=== PATIENT | male | born 1995 | race Caucasian/White ===

== ENCOUNTER 2019-10-10 02:15 | Emergency (ER) | payer OTHER ==
[2019-10-10 03:08] LABS: ABS Basophils 0.1 10^3/ul (0-0.2); ABS Eosinophils 0.1 10^3/ul (0-0.6); ABS Lymphocytes 1.9 10^3/ul (1.0-4.8); ABS Monocytes 0.6 10^3/ul (0-0.8); ABS Neutrophils 1.9 10^3/ul (1.5-7.7); Eosinophil % 1.7 %; Hematocrit 43 % (42-52); Hemoglobin 15.1 g/dL (14.0-18.0); INR 1.03 (0.82-1.09); Lymphocyte % 41.6 %; Mean Corpuscular HGB Conc 35 g/dL (31-36); Mean Corpuscular Hemoglobin 31 pg (27-31); Mean Corpuscular Volume 89 fL (80-94); Mean Platelet Volume 7.8 fL (7.4-10.4); Nucleated Red Blood Cells % 0.1; Platelet Count 222 10^3/uL (150-450); Red Cell Distribution Width 13 % (10-15); White Blood Count 4.5 10^3/uL (3.5-10.8)
[2019-10-10 03:12] LABS: Albumin/Globulin Ratio 1.6 (1-3); BUN/Creatinine Ratio 13.8 (8-20); Calcium 9.9 mg/dL (8.6-10.3); EGFR African American 132.8 (>60); EGFR Non-African American 109.7 (>60); Globulin 3.1 g/dL (2-4); Potassium 3.9 mmol/L (3.5-5.0); Total Bilirubin 0.6 mg/dL (0.2-1.0); Total Protein 8.1 g/dL (6.4-8.9)
--- OUTSIDE RECORDS SUMMARY | 2019-10-10 03:17 | XMS REPORT | Continuity of Care Document ---
:1995 External Reference #:[id number] Author Name John Aguilera M.D. (transmitted by agent of provider Kristy Chacon) Address [address] [facility] [address] [place] [address] Care Team Providers Name Role Phone Merari Lorenzana M.D. 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 Medicine Problems Description No Information Available Social History Type Date Description Comments Sex Unknown Allergies, Adverse Reactions, Alerts Description No Information Available Medications Description No Information Available Immunizations Description No Information Available Vital Signs Description No Information Available Results Description No Information Available Procedures Date Code Description Status 10/05/2019 11819 Holter Monitor Review (24 hr)dr review & interp only Completed 10/04/2019 88708 ECHO Transthoracic, Real-Time 2D With Doppler And Color Completed Flow 10/04/2019 41817 ECG Monitor/Recording W/Visual Superimposition Scanning Completed 10/04/2019 03687 ECG Monitor/Recording W/Visual Superimposition Scanning Completed Medical Devices Description No Information Available Encounters Description No Information Available Assessments Date Code Description Provider 10/05/2019 H34.212 Partial retinal artery occlusion, left John Aguilera M.D. eye 10/05/2019 I49.3 Ventricular premature depolarization John Aguilera M.D. 10/04/2019 R00.2 Palpitations John Aguilera M.D. 10/04/2019 H34.212 Partial retinal artery occlusion, left Ica ECHO Schedule eye 10/04/2019 H34.212 Partial retinal artery occlusion, left John Aguilera M.D. eye 10/04/2019 R00.2 Palpitations Nurse Visit IC 10/04/2019 I49.3 Ventricular premature depolarization John Aguilera M.D. 10/04/2019 H34.212 Partial retinal artery occlusion, left Nurse Visit IC eye 10/04/2019 I49.3 Ventricular premature depolarization Nurse Visit IC 10/04/2019 R00.2 Palpitations Ica ECHO Schedule Plan of Treatment No Information Available Functional Status Description No Information Available Mental Status Description No Information Available Referrals Description No Information Available
--- OUTSIDE RECORDS SUMMARY | 2019-10-10 03:17 | XMS REPORT | Continuity of Care Document ---
:1995 External Reference #:[id number] Author Name Nurse Visit IC (transmitted by agent of provider Kristy Chacon) Address [address] [place] [address] Care Team Providers Name Role Phone Merari Lorenzana M.D. 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 Problems Description No Information Available Social History Type Date Description Comments Sex Unknown Allergies, Adverse Reactions, Alerts Description No Information Available Medications Description No Information Available Immunizations Description No Information Available Vital Signs Description No Information Available Results Description No Information Available Procedures Date Code Description Status 10/05/2019 74995 Holter Monitor Review (24 hr)dr review & interp only Completed 10/04/2019 24239 ECHO Transthoracic, Real-Time 2D With Doppler And Color Completed Flow 10/04/2019 09031 ECG Monitor/Recording W/Visual Superimposition Scanning Completed 10/04/2019 16852 ECG Monitor/Recording W/Visual Superimposition Scanning Completed Medical [...]
--- OUTSIDE RECORDS SUMMARY | 2019-10-10 03:17 | XMS REPORT | Continuity of Care Document ---
:1995 External Reference #:[id number] Author Name Orlando Tian M.D. 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 Onset: 09/29/2019 Social History Type Date Description Comments Sex Unknown ETOH Use Consumes 3-4 beers per week Tobacco Use Start: Unknown Patient has never smoked Recreational Drug Use Denies Drug Use Smoking Status Reviewed: 10/06/19 Patient has never smoked Allergies, Adverse Reactions, Alerts Description No Known Drug Allergies Medications Active Medications SIG Qnty Indications Ordering Provider Date Melatonin Unknown 3mg Capsules Claritin 1 per day as Unknown 10mg Capsules needed Immunizations Description No Information Available Vital Signs Description No Information Available Results Description No Information Available Procedures Date Code Description Status 10/06/2019 21222 Scanning Computerized Opthalmic Diagnostic Posterior Seg Completed Retina 10/06/2019 21165 Est Patient Comprehensive Exam Completed 09/29/2019 66514 Scanning Computerized Opthalmic Diagnostic Posterior Seg Completed Retina 09/29/2019 74270 New Patient Comprehensive Exam Completed Medical Devices Description No Information Available Encounters Description No Information Available Assessments Date Code Description Provider 10/06/2019 H34.212 Partial retinal artery occlusion, left eye Orlando Tian M.D. 09/29/2019 H34.212 Partial retinal artery occlusion, left eye Orlando Tian M.D. Plan of Treatment Future Appointment(s):11/02/2019 3:00 pm - Orlando Tian M.D. at Artie Ragland MD, 10/06/2019 - Orlando Tian M.D.H34.212 Partial retinal artery occlusion, left eyeComments:Smoking can increase the risk of developing or worsening any eye related disease, as well as affect your overall health. If you are a smoker, we strongly recommend that you quit.If you are not a smoker, we strongly recommend that you do not start. YOUR EYE EXAM LOOKS THE SAME PREVIOUS. I DO NOT SEE ANY NEW LESIONS.I WILL AWAIT THE RESULTS OF YOUR ECHOCARDIOGRAM.I WILL SEND A LETTER TO DR. HIGHTOWER ABOUT OUR VISIT WELL TO DISCUSS POSSIBLY DOING A HYPERCOAGULABILITY WORK UP IF YOUR OTHER TESTING IS NORMAL. Functional Status Description No Information Available Mental Status Description No Information Available Referrals Description No Information Available
--- OUTSIDE RECORDS SUMMARY | 2019-10-10 03:17 | XMS REPORT | Continuity of Care Document ---
:1995 External Reference #:[id number] Author Name Orlando Tian M.D. 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 Onset: 09/29/2019 Social History Type Date Description Comments Sex Unknown ETOH Use Consumes 3-4 beers per week Tobacco Use Start: Unknown Patient has never smoked Recreational Drug Use Denies Drug Use Smoking Status Reviewed: 09/29/19 Patient has never smoked Allergies, Adverse Reactions, Alerts Description No Known Drug Allergies Medications Active Medications SIG Qnty Indications Ordering Provider Date Melatonin Unknown 3mg Capsules Claritin 1 per day as Unknown 10mg Capsules needed Immunizations Description No Information Available Vital Signs Description No Information Available Results Description No Information Available Procedures Date Code Description Status 09/29/2019 55022 Scanning Computerized Opthalmic Diagnostic Posterior Seg Completed Retina 09/29/2019 04235 New Patient Comprehensive Exam Completed Medical Devices Description No Information Available Encounters Description No Information Available Assessments Date Code Description Provider 09/29/2019 H34.212 Partial retinal artery occlusion, left eye Orlando Tian M.D. Plan of Treatment Future Appointment(s):11/02/2019 3:00 pm - Orlando Tian M.D. at Artie Ragland MD, 09/29/2019 - Orlando Tian M.D.H34.212 Partial retinal artery occlusion, left eyeComments:Smoking can increase the risk of developing or worsening any eye related disease, as well as affect your overall health. If you are a smoker, we strongly recommend that you quit.If you are not a smoker, we strongly recommend that you do not start. I CAN SEE A SMALL SPOT IN THE LEFT RETINA THAT LOOKSTO HAVE HAD A SMALL IMPEDIMENT TO BLOOD FLOWTHIS MAY HAVE BEEN RELATED TO YOUR PREVIOUS ILLNESS.I EXPECT THIS TO RESOLVE ON ITS OWNFollow up:1 Month Follow Up DFE, OCT MAC Functional Status Description No Information Available Mental Status Description No Information Available Referrals Description No Information Available
--- NOTE | 2019-10-10 03:38 | ED ---
HPI Chest Pain - HPI Summary HPI Summary: This pt is a 23 Y/O M presenting to [facility] with a CC of CP that has been intermittent and located on his L side with associated L sided elbow pain and is rated a 2/10 at the worst in severity. He states that he was recently diagnosed with a blood clot on his retina which caused issues with vision. He then had an echocardiogram which showed he had primary hypertension. He was told to wait to take blood thinners until after seeing a insurance representative that is scheduled during this coming week. He states that the pain he experienced today began while he was on a brisk walk around 1000. The pain is described as a tightness or twinge in his L shoulder which radiates to the middle of his spine that last for around an hour or two. He states that the pain is not aggravated by anything but is alleviated by stretching until he returns to his resting position. He states that he has been wheezing lately and had nausea tonight. He states that he also had increased anxiety and diaphoresis this night prior to arrival. He states that he takes melatonin before bed and is prescribed Lorazepam. He denies any drug use and states he was drinking alcohol 4 days a week until 2 weeks ago. He states an extensive cardiac history including a [place] in his grandfather at 49 years old, HTN, PEs in family members around 45 years of age. Home Medications Medication Instructions Recorded Confirmed Type LORazepam [Lorazepam] 0.5 mg PO BID PRN 10/10/19 10/10/19 History Melatonin 5 mg PO BEDTIME 10/10/19 10/10/19 History - History of Current Complaint Chief Complaint: EDChestWallPain Time Seen by Provider: 10/10/19 02:18 Hx Obtained From: Patient Onset/Duration: Started Hours Ago Time of Onset: 10:00 Timing: Intermittent, Lasting Hours Initial Severity: Mild Current Severity: Mild Pain Intensity: 2 Pain Scale Used: 0-10 Numeric Chest Pain Location: Discrete at:, Left Anterior Chest Pain Radiates: Yes Chest Pain Radiates To:: Shoulder Character: Tightness, Other: - "twinge" Aggravating Factor(s): Nothing Alleviating Factor(s): Other: - sretching Associated Signs and Symptoms: Positive: Chest Pain, Anxiety, Shortness of Breath, Nausea, Palpitations. Negative: Dizziness - Allergy/Home Medications Allergies/Adverse Reactions: Allergies Allergy/AdvReac Type Severity Reaction Status Date / Time No Known Allergies Allergy Verified 10/10/19 02:25 Home Medications: Home Medications LORazepam [Lorazepam] 0.5 mg PO BID PRN 10/10/19 [History Confirmed 10/10/19] Melatonin 5 mg PO BEDTIME 10/10/19 [History Confirmed 10/10/19] PMH/Surg Hx/FS Hx/Imm Hx Previously Healthy: Yes Endocrine/Hematology History: Denies: Hx Diabetes Cardiovascular History: Reports: Hx Hypertension - primary Respiratory History: Denies: Hx Asthma Sensory History: Denies: Hx Contacts or Glasses, Hx Vision Problem Opthamlomology History: Denies: Hx Contacts or Glasses, Hx Legally Blind Psychiatric History: Reports: Hx Anxiety - Cancer History Hx Chemotherapy: No Hx Radiation Therapy: No - Surgical History Surgical History: None - Immunization History Immunizations Up to Date: Yes Infectious Disease History: No Infectious Disease History: Denies: Traveled Outside the [place] in Last 30 Days - Family History Known Family History: Positive: Cardiac Disease, Hypertension - Social History Occupation: Student Lives: Alone Alcohol Use: None Hx Substance Use: No Substance Use Type: Reports: None Hx Tobacco Use: No Smoking Status (MU): Never Smoked Tobacco Review of Systems Positive: Palpitations, Chest Pain Positive: Shortness Of Breath Positive: Nausea Positive: Other - shoulder, elbow pain Neurological/Mental Status: Negative - dizziness Positive: Anxious All Other Systems Reviewed And Are Negative: Yes Physical Exam - Summary Physical Exam Summary: General: Well-developed, Well-nourished male who is moderately anxious appearing HEENT: Normocephalic, Atraumatic. Eyes: Conjuctiva normal, PERRL. Oropharynx: Clear, mucous membranes moist, (-) exudates. Neck: Soft, FROM, (-) lymphadenopathy, (-) thyromegaly, (-) JVD. Cardiovascular: Normal sinus rhythm, (-) murmur. Lungs: Clear to auscultation bilaterally (-) wheezes, (-) rales, (-) rhonchi. Abdomen: Soft, non-tender, non-distended, (-) organomegaly, normal bowel sounds. Back: (-) CVA tenderness Extremities: No edema. Skin: Warm, dry, (-) rash. Neuro: Alert and oriented x3, moves all extremities equally. No ataxia. No gait disturbance. No sensory deficit. Normal strength, normal sensation. Psychiatric: Mood normal, affect normal. Triage Information Reviewed: Yes Vital Signs On Initial Exam: Initial Vitals Temp Pulse Resp BP Pulse Ox 98.0 F 94 16 164/103 99 10/10/19 02:21 10/10/19 02:21 10/10/19 02:21 10/10/19 02:21 10/10/19 02:21 Vital Signs Reviewed: Yes Procedures - Sedation Patient Received Moderate/Deep Sedation with Procedure: No Diagnostics - Vital Signs Vital Signs Temp Pulse Resp BP Pulse Ox 10/10/19 02:25 94 164/103 100 10/10/19 02:21 98.0 F 86 16 164/103 99 - Laboratory Lab Results: Lab Results 10/10/19 10/10/19 10/10/19 Range/Units 02:45 02:45 02:45 WBC 4.5 (3.5-10.8) 10^3/uL RBC 4.80 (4.18-5.48) 10^6 /uL Hgb 15.1 (14.0-18.0) g/dL Hct 43 (42-52) % MCV 89 (80-94) fL MCH 31 (27-31) pg MCHC 35 (31-36) g/dL RDW 13 (10-15) % Plt Count 222 (150-450) 10^3/uL MPV 7.8 (7.4-10.4) fL Neut % (Auto) 42.4 % Lymph % (Auto) 41.6 % Twiggs % (Auto) 13.2 % Eos % (Auto) 1.7 % Baso % (Auto) 1.1 % Absolute Neuts (auto) 1.9 (1.5-7.7) 10^3/ul Absolute Lymphs (auto) 1.9 (1.0-4.8) 10^3/ul Absolute Monos (auto) 0.6 (0-0.8) 10^3/ul Absolute Eos (auto) 0.1 (0-0.6) 10^3/ul Absolute Basos (auto) 0.1 (0-0.2) 10^3/ul Absolute Nucleated RBC 0.0 10^3/ul Nucleated RBC % 0.1 INR (Anticoag Therapy) 1.03 (0.82-1.09) D-Dimer, Quantitative < 200 (Less Than 230) ng/mL Sodium 134 L (135-145) mmol/L Potassium 3.9 (3.5-5.0) mmol/L Chloride 95 L (101-111) mmol/L Carbon Dioxide 31 (22-32) mmol/L Anion Gap 8 (2-11) mmol/L BUN 12 (6-24) mg/dL Creatinine 0.87 (0.67-1.17) mg/dL Est GFR ( Amer) 132.8 (>60) Est GFR (Non-Af Amer) 109.7 (>60) BUN/Creatinine Ratio 13.8 (8-20) Glucose 101 H (70-100) mg/dL Calcium 9.9 (8.6-10.3) mg/dL Total Bilirubin 0.60 (0.2-1.0) mg/dL AST 19 (13-39) U/L ALT 25 (7-52) U/L Alkaline Phosphatase 67 (34-104) U/L Troponin I 0.00 (<0.03) ng/mL Total Protein 8.1 (6.4-8.9) g/dL Albumin 5.0 (3.2-5.2) g/dL Globulin 3.1 (2-4) g/dL Albumin/Globulin Ratio 1.6 (1-3) Result Diagrams: 10/10/19 02:45 10/10/19 02:45 Lab Statement: Any lab studies that have been ordered have been reviewed, and results considered in the medical decision making process. - Radiology CXR Radiology Interpretation Completed By: Radiologist Summary of Radiographic Findings: No infiltrate. No pleural effusion. ED physician has reviewed this report. - EKG 0217 Cardiac Rate: NL - 85 BPM EKG Rhythm: Sinus Rhythm ST Segment: Normal Ectopy: None Summary of EKG Findings: EKG at 0217 reveals normal sinus rhythm with rate of 85 BPM, no acute changes, no ischemic changes. This EKG was reviewed and interpreted by Dr. Henderson at 10/10/2019 0220. Chest Pain Course/Dx - Course Course Of Treatment: year-old male presents from home with chest pain. Chest pain so this morning. Describes it in his left chest that went into his left arm as well. He admits he became very nervous. He states that two weeks ago he had trouble with his vision and went to an eye doctor. Was told he had a clot in his eye. He was appointment set up with cardiology. 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 has had palpitations off and on. now with chest pain, slight sob, slight nausea. physical exam with no significant abnormalities. workup with negative troponins x 2. negative esr. no acute changes on EKG. negative ddimer. discharged to home. follow up with PCP. follow up sooner for any worsening symtpoms. - Diagnoses Provider Diagnoses: Chest pain - Critical Care Time Critical Care Statement: Critical care time is provided exclusive of any time spent performing procedures. Discharge ED - Sign-Out/Discharge Documenting (check all that apply): Patient Departure - discharge - Discharge Plan Condition: Good Disposition: HOME Patient Education Materials: Chest Pain (ED) Referrals: Merari Pearl MD [Primary Care Provider] - 2 Days Additional Instructions: PLEASE FOLLOW UP WITH YOUR PRIMARY CARE PHYSICIAN IN 1-3 DAYS AND RETURN TO THE EMERGENCY DEPARTMENT FOR ANY NEW OR WORSENING SYMPTOMS. - Billing Disposition and Condition Condition: GOOD Disposition: Home - Attestation Statements Document Initiated by Jodiibe: Yes Documenting Scribe: Guero Negron Provider For Whom Jodiibe is Documenting (Include Credential): Roxann Henderson MD Scribe Attestation: I, Guero Negron, scribed for Roxann Henderson MD on 10/10/19 at 3760. Scribe Documentation Reviewed: Yes Provider Attestation: The documentation as recorded by the Guero castro accurately reflects the service I personally performed and the decisions made by me, Roxann Henderson MD Status of Scribe Document: Viewed
[2019-10-10 05:20] LABS: Erythrocyte Sed Rate 1 mm/Hr (0-14)
[2019-10-10 05:53] VITALS: BP 128/87
== END 2019-10-10 05:45 | disposition home or self-care (01) ==
LOC: ED 02:15
DX: R07.89 Other chest pain (principal); I10 Essential (primary) hypertension; F41.9 Anxiety disorder, unspecified; R06.02 Shortness of breath; R11.0 Nausea; R00.2 Palpitations; Z79.899 Other long term (current) drug therapy; Z82.49 Family history of ischemic heart disease and other diseases of the circulatory system
CPT/HCPCS: 36415; 71045; 80053; 84484; 85025; 85379; 85610; 85652; 93005; 99283